=== PATIENT | male | born 1985 | race Caucasian/White ===

== ENCOUNTER → 2024-02-09 14:52 | Outpatient (REF) | payer BC, SELFPAY | LOC: HWRCS 14:52 | PROVIDERS: ATTENDING PHYSICIAN Internal Medicine Cardiovascular Disease; FAMILY PHYSICIAN Family Medicine | DX: I10 Essential (primary) hypertension (principal) | CPT/HCPCS: 93306 ==

== ENCOUNTER 2025-06-15 09:00 | Emergency (ER) | payer BC, SELFPAY ==
[2025-06-15 09:01] VITALS: BP 191/10
--- NOTE | 2025-06-15 09:14 | ED.GENMED ---
History of Present Illness
General
Chief Complaint: Skin Problem
Source: patient
Exam Limitations: none
Time Seen by Provider: 06/15/25 09:07
Nursing documentation reviewed up to this point in time: agreed with
History of Present Illness
History of Present Illness:
39 yr old male presents to the ED for evaluation. On Wednesday 6 days ago he was out gardening and felt that he got bit by mosquito. He noticed itching to the area since then he has had intermittent redness to the area and had a low-grade fever of
100 yesterday. He complains of itchiness to the area. Denies any redness to his knee denies any knee pain or joint swelling. He denies any fevers today. He is a prediabetic on metformin.
Past History
Past History
ED Past Medical History: HTN and Hypercholesterolemia
ED Past Surgical History: None
Social History
Tobacco: Non-smoker
Alcohol: Occasional
Drug: None
Personal:
Living: with family
Employment: Employed
Family History
Family History: CAD (Father with AK late in life) and Cancer (Father)
Phy Exam
General Physical Exam
General Presentation: no apparent distress
General age: appears stated age
General Skin: warm and dry
General Habitus: normal
General Mental: alert
General Hydration: appears well hydrated
Neurological Exam
Neurological Exam: alert
Musculoskeletal Exam
Musculoskeletal Exam: other (right leg with + erythema to medial knee region no swelling full ROM to knee no joint discomfort with ROM )
Skin Exam
Skin Exam: normal color and warm/dry
Psychiatric Exam
Psychiatric Exam: normal mood/affect
Sepsis
Sepsis Screening
Sepsis Assessment: Sepsis Ruled Out
Sepsis Screen
Sepsis Screen: Sepsis Ruled Out
Date: 06/15/25
Time: 15:08
Course
Orders/Labs/Results
Orders:
Orders
06/15/25 09:41
Cephalexin Monohydrate [Keflex] 500 mg PO NOW STA
Vital Signs
Initial and Last Documented VS:
Initial Vital Signs
Temp Pulse Resp BP Pulse Ox
98.1 F 99 18 191/10 97
06/15/25 09:01 06/15/25 09:01 06/15/25 09:01 06/15/25 09:01 06/15/25 09:01
Last Documented Vital Signs
Temp Pulse Resp BP Pulse Ox
98.1 F 85 20 153/85 99
06/15/25 09:01 06/15/25 09:34 06/15/25 09:34 06/15/25 09:34 06/15/25 09:34
MDM/Problems Addressed
Differential Diagnosis Includes:
Not limited to bug bite, cellulitis less likely Lyme
MDM/Problems Addressed:
Symptoms are consistent with mild cellulitis. Patient is very well-appearing in no acute distress. He reports this is very itchy this does not appear like a bull's-eye rash. No evidence of septic joint. he is very well-appearing will treat for
mild cellulitis with Keflex with close outpatient follow-up with family doctor in 2 days
*Pulse Oximetry
SaO2: 97
Oxygen Mode of Delivery: Room air
Patient hypoxic: no
*Critical Care Note
Total Time (30-74mins, 75-104mins- exclusive of procedures): Not Applicable
ED Attending Note
-
Portions of this chart may have been created with voice recognition software.� Occasional wrong word or��sound alike� substitutions may have occurred due to the inherent limitations of voice recognition software.
Discharge Plan
Departure
Patient Disposition: Home (Routine Discharge)
Date of Disposition: 06/15/25
Time of Disposition: 09:31
Patient with high blood pressure during this ER visit?: Yes
Condition: Fair
Covid-19: Not Applicable
Discharge Problem:
Cellulitis, Insect bite
Instructions: Cellulitis (skin infection) in adults (DC), BLOOD PRESSURE
Prescriptions:
New
cephalexin 500 mg capsule
500 mg PO Q6H Qty: 28 0RF
No Action
multivitamin [One Daily Multivitamin] 1 EACH tablet
1 ea PO DAILY
atorvastatin 40 MG tablet
40 mg PO DAILY
acetaminophen 325 MG tablet
325 mg PO Q4HPRN PRN (Reason: pain)
lisinopril 20 MG tablet
20 mg PO DAILY
amlodipine 5 MG tablet
5 mg PO DAILY
diphenhydramine HCl [Banophen] 25 MG capsule
25 mg PO DAILYPRN PRN (Reason: allergies)
ibuprofen [Advil] 200 MG tablet
400 mg PO Q6HPRN PRN (Reason: pain)
fluticasone propionate 1 SPRAY spray,suspension
1 spray intranasal DAILYPRN PRN (Reason: allergies)
loratadine 10 MG tablet
10 mg PO DAILYPRN PRN (Reason: allergies )
Activity Restrictions/Additional Instructions:
As discussed start Keflex 4 times a day for the next 1 week. Please call your family doctor's office today to make an appointment on Wednesday for recheck. Return however to the ER for any worsening of symptoms of increased redness swelling pain red
streaks fever chills body aches.
Interventions
Interventions:
*Risk Screen - Suicide Last Done: 06/15/25 09:01
*General Assessment Last Done: 06/15/25 09:01
*Neglect/Abuse Screening Last Done: 06/15/25 10:01
*ED COVID-19 Vaccine History Last Done: 06/15/25 10:01
*ED Influenza Vaccine History Last Done: 06/15/25 10:01
*Nursing Disposition Last Done: 06/15/25 10:03
ED-Skin Assessment Last Done: 06/15/25 10:01
Discharge Date and Time
Discharge Date/Time: 10/03/25 10:04
Print Language: [id number]
[2025-06-15 09:34] VITALS: BP 153/85
[2025-06-15] MEDS: KEFLEX 500 MG PO (09:54)
== END 2025-06-15 10:04 | disposition home or self-care (01) ==
LOC: EMR 09:00
PROVIDERS: EMERGENCY PHYSICIAN Emergency Medicine; FAMILY PHYSICIAN Family Medicine
DX: L03.115 Cellulitis of right lower limb (principal); W57.XXXA Bitten or stung by nonvenomous insect and other nonvenomous arthropods, initial encounter; I10 Essential (primary) hypertension; E78.00 Pure hypercholesterolemia, unspecified; R73.03 Prediabetes; Z80.9 Family history of malignant neoplasm, unspecified; Z82.49 Family history of ischemic heart disease and other diseases of the circulatory system
CPT/HCPCS: 99282